=== PATIENT | female | born 1985 | race Two or more races ===

== ENCOUNTER → 2020-08-18 | Outpatient (CLI) | payer OTHER ==
[~2020-08-18] MED LIST: IBUP-1222 PO; OXYC-302 PO
== END | disposition home or self-care (01) ==
LOC: STAR 10:45
PROVIDERS: ATTEND Anesthesiology
DX: Z20.828 Contact with and (suspected) exposure to other viral communicable diseases (principal)
CPT/HCPCS: 87635

== ENCOUNTER 2020-08-25 05:19 | Inpatient (IN) | payer OTHER ==
[~2020-08-25] VITALS: Ht 160 cm; Wt 124.0 kg
[2020-08-25] MEDS ORDERED: NEWBORN KIT ONE (05:25)
[2020-08-25] MEDS ORDERED: OXYTOCIN 30U/ 0.9% NaCL 500ML 500 ML ONE (05:25)
[2020-08-25] MEDS ORDERED: METOCLOPRAMIDE 5 MG/ML, 2ML ONE (05:25)
[2020-08-25] MEDS ORDERED: LACTATED RINGERS 1,000 ML IV SCH (05:30)
[2020-08-25] MEDS ORDERED: LACTATED RINGERS 1,000 ML IVBOLUS ONE (05:30)
[2020-08-25] MEDS ORDERED: METOCLOPRAMIDE 5 MG/ML, 2ML IV ONE (05:30)
[2020-08-25] MEDS ORDERED: SODIUM CITRATE/CITRIC ACID 30 ML UDC PO ONE (05:30)
[2020-08-25 05:36] VITALS: BP 117/63
[2020-08-25] MEDS ORDERED: PREN1TAB62 PO (05:44)
[2020-08-25] MEDS ORDERED: ASPI-515 PO (05:44)
[2020-08-25] MEDS ORDERED: LABE100T6 PO (05:45)
[2020-08-25] MEDS ORDERED: PLEASE ENTER HEIGHT AND WEIGHT MC SCH (06:00)
[2020-08-25 06:04] LABS: BASOPHILS % (AUTO) 1 % (0-1); EOSINOPHILS % (AUTO) 1 % (1-7); LYMPHOCYTES % (AUTO) 18 % (22-44); MEAN CORPUSCULAR HEMOGLOBIN 30.9 pg (27.0-34.8); MEAN CORPUSCULAR HGB CONC 34.2 g/dL (32.4-35.8); MEAN PLATELET VOLUME 9.8 fL (7.4-10.4); MONOCYTES % (AUTO) 4 % (2-9); NEUTROPHILS % (AUTO) 77 % (42-75); PLATELET COUNT 165 x10^3/uL (130-400); RED BLOOD COUNT 3.67 x10^6/uL (3.82-5.3); RED CELL DISTRIBUTION WIDTH 13.3 % (9.6-15.2)
[2020-08-25 06:56] LABS: MD SCAN
[2020-08-25] MEDS ORDERED: PROMETHAZINE 25 MG/ML, 1ML IV PRN (07:00)
[2020-08-25] MEDS ORDERED: ALBUTEROL SULFATE 2.5 MG/3 ML NPPB PRN (07:00)
[2020-08-25] MEDS ORDERED: MIDAZOLAM 1 MG/ML, 2ML IV PRN (07:00)
[2020-08-25] MEDS ORDERED: ONDANSETRON 2MG/ML, 2ML IVPush PRN (07:00)
[2020-08-25] MEDS ORDERED: HYDROcodone/APAP 7.5-325MG/15ML UDC PO PRN (07:00)
[2020-08-25] MEDS ORDERED: OXYcodone 5 MG/5 ML ORAL.SOL UDC PO PRN (07:00)
[2020-08-25] MEDS ORDERED: HYDROmorphone 2 MG/ML, 1ML IVPush PRN (07:00)
[2020-08-25] MEDS ORDERED: METOPROLOL 1 MG/ML, 5ML IV PRN (07:00)
[2020-08-25] MEDS ORDERED: morphine SULFATE 10 MG/ML, 1ML IV PRN (07:00)
[2020-08-25] MEDS ORDERED: EPHEDRINE 50 MG/ML, 1ML IVPush PRN (07:00)
[2020-08-25] MEDS ORDERED: LABETALOL 5MG/ML, 20ML IV PRN (07:00)
[2020-08-25] MEDS ORDERED: FENTANYL PF 100 MCG/2ML IV PRN (07:00)
[2020-08-25] MEDS ORDERED: hydrALAzine 20 MG/ML, 1ML IV PRN (07:00)
[2020-08-25] MEDS ORDERED: PHENYLEPHRINE 10 MG/ML ONE (07:09)
[2020-08-25] MEDS ORDERED: CEFAZOLIN 1,000 MG ONE (07:09)
[2020-08-25] MEDS ORDERED: DEXAMETHASONE 4 MG/ML, 1ML ONE (07:09)
[2020-08-25] MEDS ORDERED: EPHEDRINE 50 MG/ML, 1ML ONE (07:09)
[2020-08-25] MEDS ORDERED: ONDANSETRON 2MG/ML, 2ML ONE (07:09)
[2020-08-25] MEDS ORDERED: FENTANYL PF 100 MCG/2ML ONE (07:09)
[2020-08-25] MEDS ORDERED: OXYTOCIN 10 UNITS/ML, 1ML ONE (07:09)
[2020-08-25] MEDS ORDERED: KETOROLAC 30 MG/1 ML ONE (07:09)
[2020-08-25] MEDS ORDERED: HYDROmorphone 2 MG/ML, 1ML ONE (08:29)
[2020-08-25] MEDS ORDERED: MISOPROSTOL 200 MCG TABLET PR PRN (09:00)
[2020-08-25] MEDS ORDERED: ONDANSETRON 2MG/ML, 2ML IV PRN (09:00)
[2020-08-25] MEDS ORDERED: MORPHINE SULFATE 4 MG/ML, 1ML IVPush PRN (09:00)
[2020-08-25] MEDS: LACTATED RINGERS 1,000 ML IV SCH ×4 (09:00→19:00)
[2020-08-25] MEDS ORDERED: OXYcodone IR 5MG TABLET PO PRN (09:00)
[2020-08-25] MEDS ORDERED: ACETAMINOPHEN 325 MG TABLET PO PRN (09:00)
[2020-08-25] MEDS ORDERED: SIMETHICONE 80 MG CHEW TAB PO PRN (09:00)
[2020-08-25] MEDS ORDERED: OXYcodone/APAP 5/325MG TABLET PO PRN (09:00)
[2020-08-25] MEDS: PRENATAL VIT/IRON/FA 1 EACH TABLET PO SCH (09:00)
[2020-08-25] MEDS: OXYTOCIN 30U/ 0.9% NaCL 500ML 500 ML IV SCH ×2 (11:09→19:00)
[2020-08-25 13:03] VITALS: BP 121/77
[2020-08-25] MEDS: KETOROLAC 30 MG/1 ML IV SCH ×2 (15:16→21:02)
[2020-08-25 16:54] LABS: BASOPHILS % (AUTO) 1 % (0-1); EOSINOPHILS % (AUTO) 0 % (1-7); LYMPHOCYTES % (AUTO) 8 % (22-44); MEAN CORPUSCULAR HEMOGLOBIN 30.5 pg (27.0-34.8); MEAN CORPUSCULAR HGB CONC 33.6 g/dL (32.4-35.8); MEAN PLATELET VOLUME 9.7 fL (7.4-10.4); MONOCYTES % (AUTO) 3 % (2-9); NEUTROPHILS % (AUTO) 89 % (42-75); PLATELET COUNT 167 x10^3/uL (130-400); RED BLOOD COUNT 3.42 x10^6/uL (3.82-5.3); RED CELL DISTRIBUTION WIDTH 13.1 % (9.6-15.2)
[2020-08-25 17:19] LABS: MD SCAN
[2020-08-25] MEDS: LABETALOL 100 MG TABLET PO SCH (17:40)
[2020-08-25 17:42] VITALS: BP 127/81
[2020-08-25 20:40] VITALS: BP 113/65
[2020-08-26 00:15] VITALS: BP 101/63
[2020-08-26] MEDS: LACTATED RINGERS 1,000 ML IV SCH ×4 (01:00→19:00)
[2020-08-26] MEDS: KETOROLAC 30 MG/1 ML IV SCH ×4 (03:21→21:45)
[2020-08-26 04:39] VITALS: BP 113/70
[2020-08-26] MEDS: OXYTOCIN 30U/ 0.9% NaCL 500ML 500 ML IV SCH ×2 (05:00→19:00)
[2020-08-26 07:30] VITALS: BP 123/80
[2020-08-26] MEDS: PRENATAL VIT/IRON/FA 1 EACH TABLET PO SCH (07:49)
[2020-08-26] MEDS: DOCUSATE 100 MG CAPSULE PO PRN (07:49)
[2020-08-26] MEDS: LABETALOL 100 MG TABLET PO SCH ×2 (07:49→18:44)
[2020-08-26 18:30] VITALS: BP 103/69
[2020-08-26 21:45] VITALS: BP 114/72
[2020-08-27] MEDS: LACTATED RINGERS 1,000 ML IV SCH ×3 (01:00→07:55)
[2020-08-27] MEDS: OXYTOCIN 30U/ 0.9% NaCL 500ML 500 ML IV SCH (01:00)
[2020-08-27] MEDS: KETOROLAC 30 MG/1 ML IV SCH (03:51)
[2020-08-27 08:03] VITALS: BP 129/87
[2020-08-27] MEDS: PRENATAL VIT/IRON/FA 1 EACH TABLET PO SCH (08:08)
[2020-08-27] MEDS: DOCUSATE 100 MG CAPSULE PO PRN (08:08)
[2020-08-27] MEDS: LABETALOL 100 MG TABLET PO SCH (08:09)
[2020-08-27] MEDS ORDERED: OXYC-302 PO (08:32)
[2020-08-27] MEDS ORDERED: IBUP-1222 PO (08:32)
[2020-08-27] MEDS ORDERED: MEASLES,MUMPS&RUBELLA VACC/PF 0.5 ML SQ-VACC ONE (09:30)
[2020-08-27] MEDS ORDERED: IBUPROFEN 600 MG TABLET PO PRN (21:00)
== END 2020-08-27 09:35 | disposition home or self-care (01) | DRG 784 ==
LOC: LDIP 05:19 → 2NW 13:41
PROVIDERS: ADMIT Obstetrics & Gynecology; ATTEND Obstetrics & Gynecology
PROC: 0UB70ZZ Excision of Bilateral Fallopian Tubes, Open Approach (ICD-10-PCS; principal; 2020-08-25)
PROC: 10D00Z1 Extraction of Products of Conception, Low, Open Approach (ICD-10-PCS; 2020-08-25)
DX: O34.211 Maternal care for low transverse scar from previous cesarean delivery (principal); O10.92 Unspecified pre-existing hypertension complicating childbirth; O69.81X0 Labor and delivery complicated by cord around neck, without compression, not applicable or unspecified; O99.824 Streptococcus B carrier state complicating childbirth; Z3A.38 38 weeks gestation of pregnancy; Z37.0 Single live birth; Z30.2 Encounter for sterilization; Z20.828 Contact with and (suspected) exposure to other viral communicable diseases
CPT/HCPCS: 36415; 85025; 86592; 86850; 86900; 87635; 88302; G0378; J0690; J1100; J1170; J1885; J2405; J3010; J2370; J2590; J2765; J7120